=== PATIENT | female | born 1995 | race Caucasian/White ===

== ENCOUNTER 2018-06-12 21:53 | Inpatient (IN) | payer MEDICAID ==
[2018-06-12] MEDS ORDERED: OXYTOCIN 30 UNITS/LR 500 ML IV (23:00)
[2018-06-12] MEDS ORDERED: IBUPROFEN 600 MG TAB PO (23:00)
[2018-06-12] MEDS ORDERED: LIDOCAINE 1% (MPF) 30 ML INJ INJ (23:00)
[2018-06-12] MEDS ORDERED: BUTORPHANOL 2 MG INJ IV (23:00)
[2018-06-12 23:37] LABS: RUPTURE FETAL MEMBRANES POSITIVE (NEGATIVE)
[2018-06-12] MEDS: LACTATED RINGER'S 1,000 ML IV (23:48)
[2018-06-12 23:57] LABS: ADD MAN DIFF? NO
[2018-06-13] LABS: BASOPHIL # 0.1 10^3/ul (0.0-0.1); BASOPHILS % 0.4 % (0.0-2.0); EOSINOPHILS # 0.2 10^3/ul (0.0-0.5); EOSINOPHILS % 1.7 % (0.0-7.0); HEMATOCRIT 34.6 % (37.0-47.0); HEMOGLOBIN 11.4 g/dl (12.0-16.0); LYMPHOCYTES # 1.9 10^3/ul (0.8-2.9); LYMPHOCYTES % 13.7 % (15.0-51.0); MEAN CORPUSCULAR HGB CONC 32.9 g/dl (32.0-37.0); MEAN PLATELET VOLUME 11.1 fl (7.4-10.4); MONOCYTE # 0.9 10^3/ul (0.3-0.9); MONOCYTES % 6.5 % (0.0-11.0); NEUTROPHIL # 10.6 10^3/ul (1.6-7.5); NEUTROPHILS % 76.6 % (39.0-77.0); PLATELET COUNT 213 10^3/UL (140-415); RED BLOOD COUNT 4.22 10^6/ul (4.20-5.40); RED CELL DISTRIBUTION WIDTH 13.6 % (11.5-14.5)
[2018-06-13] LABS: WHITE BLOOD COUNT 13.9 10^3/ul (4.8-10.8)
[2018-06-13 00:05] LABS: ADD UMIC YES; UR ASCORBIC ACID 40 mg/dL (NEGATIVE); UR BACTERIA FEW /HPF (NONE SEEN); UR BILIRUBIN (Dip) NEGATIVE (NEGATIVE); UR BLOOD (Dip) NEGATIVE (NEGATIVE); UR CLARITY CLEAR (CLEAR); UR COLOR YELLOW (YELLOW); UR GLUCOSE (Dip) NEGATIVE (NEGATIVE); UR KETONES (Dip) NEGATIVE (NEGATIVE); UR LEUKOCYTE ESTERASE (Dip) TRACE Leu/ul (NEGATIVE); UR NITRITE (Dip) NEGATIVE (NEGATIVE); UR RBC 1 /HPF (0-5); UR SPECIFIC GRAVITY (Dip) 1.013 (1.003-1.030); UR SQUAMOUS EPITHELIAL CELL FEW /HPF (FEW); UR TOTAL PROTEIN (Dip) NEGATIVE (NEGATIVE); UR UROBILINOGEN (Dip) NEGATIVE (NEGATIVE); UR WBC 6 /HPF (0-5)
[2018-06-13 00:20] LABS: ALANINE AMINOTRANSFERASE 26 IU/L (13-69); ALBUMIN 3.6 g/dl (3.3-4.9); ALBUMIN/GLOBULIN RATIO 1.02; ALKALINE PHOSPHATASE 174 IU/L (42-121); ANION GAP 13 (5-13); ASPARTATE AMINO TRANSFERASE 19 IU/L (15-46); BILIRUBIN,INDIRECT 0.1 mg/dl (0-1.1); BILIRUBIN,TOTAL 0.1 mg/dl (0.2-1.3); BLOOD UREA NITROGEN 11 mg/dl (7-20); CALCIUM 9.1 mg/dl (8.4-10.2); CARBON DIOXIDE 22 mmol/L (21-31); CHLORIDE 101 mmol/L (97-110); CREATININE 0.48 mg/dl (0.44-1.00); Estimated GFR > 60 mL/min (>60); GLUCOSE 92 mg/dl (70-220); POTASSIUM 3.8 mmol/L (3.5-5.1); SODIUM 136 mmol/L (135-144); TOTAL PROTEIN 7.1 g/dl (6.1-8.1)
[2018-06-13 00:26] LABS: INR 0.85; PROTIME 11.7 Sec (11.9-14.9); PT RATIO 0.9
[2018-06-13 00:27] LABS: PARTIAL THROMBOPLASTIN TIME 24.2 Sec (23.0-35.0)
[2018-06-13 00:50] LABS: HEPATITIS B SURFACE ANTIGEN NEGATIVE (NEGATIVE)
[2018-06-13] MEDS ORDERED: FENTAnyl 2MCG/ML-ROPIV 0.2% 100 ML (02:30)
[2018-06-13] MEDS: LACTATED RINGER'S 1,000 ML IV ×2 (02:49→03:14)
[2018-06-13] MEDS ORDERED: ONDANSETRON 4 MG INJ IV (03:00)
[2018-06-13] MEDS ORDERED: DIPHENHYDRAMINE 50 MG INJ IV (03:00)
[2018-06-13] MEDS ORDERED: NALOXONE (0.4 MG/ML) INJ IV (03:00)
[2018-06-13] MEDS: FENTAnyl 2MCG/ML-ROPIV 0.2% 100 ML BAG EPI (07:49)
[2018-06-13] MEDS: OXYTOCIN 30 UNITS/LR 500 ML IV ×3 (10:16→13:07)
[2018-06-13] MEDS: METHYLERGONOVINE 0.2 MG INJ IM (10:19)
[2018-06-13] MEDS: MISOPROSTOL 200 MCG TAB PR (10:22)
[2018-06-13] MEDS: CARBOPROST 250 MCG INJ IM ×2 (10:26→10:47)
[2018-06-13] MEDS: TRANEXAMIC ACID 1GM/100ML(PMX) 100 ML IVPB (10:49)
[2018-06-13] MEDS: ONDANSETRON 4 MG INJ IV (11:24)
[2018-06-13] MEDS: CEFAZOLIN 2 GM/50 ML (PMX) 50 ML IVPB (11:36)
[2018-06-13] MEDS: KETOROLAC 30 MG INJ IV (12:38)
[2018-06-13] MEDS ORDERED: ACETAMINOPHEN 325 MG TAB PO (14:00)
[2018-06-13] MEDS ORDERED: CARBOPROST 250 MCG INJ IM (14:00)
[2018-06-13] MEDS ORDERED: METHYLERGONOVINE 0.2 MG INJ IM (14:00)
[2018-06-13] MEDS ORDERED: OXYTOCIN 30 UNITS/LR 500 ML IV (14:00)
[2018-06-13] MEDS ORDERED: HYDROCODONE/APAP (5/325) TAB PO (14:00)
[2018-06-13] MEDS ORDERED: MISOPROSTOL 200 MCG TAB PR (14:00)
[2018-06-13 14:19] LABS: ABNORMAL IP MESSAGE 1; HEMATOCRIT 28.1 % (37.0-47.0); HEMOGLOBIN 9.3 g/dl (12.0-16.0); MEAN CORPUSCULAR HEMOGLOBIN 26.8 pg (29.0-33.0); MEAN CORPUSCULAR HGB CONC 33.1 g/dl (32.0-37.0); PLATELET COUNT 190 10^3/UL (140-415); RED BLOOD COUNT 3.47 10^6/ul (4.20-5.40); RED CELL DISTRIBUTION WIDTH 13.7 % (11.5-14.5)
[2018-06-13 14:19] LABS: WHITE BLOOD COUNT 24.7 10^3/ul (4.8-10.8)
[2018-06-13 14:35] LABS: POSITIVE DIFF @See below
[2018-06-13 14:36] LABS: ADD MAN DIFF? YES
[2018-06-13] MEDS: LACTATED RINGER'S 1,000 ML IV* (15:52)
[2018-06-13 16:14] LABS: ANISOCYTOSIS 1+ (0-0); BAND NEUTROPHILS #M 3.7 10^3/ul (0.0-0.6); BAND NEUTROPHILS % (M) 15 % (0-4); LYMPHOCYTES #M 0.9 10^3/ul (0.8-2.9); LYMPHOCYTES % (M) 4 % (15-51); MICROCYTOSIS 1+ (0-0); MONOCYTE #M 0.7 10^3/ul (0.3-0.9); MONOCYTES % (M) 3 % (0-11); PLATELET ESTIMATE NORMAL; SEG NEUT #M 20.2 10^3/ul (1.6-7.5); SEGMENTED NEUTROPHILS (M) % 78 % (39-77); SMUDGE%M 1 % (0-0)
[2018-06-13] MEDS: IBUPROFEN 600 MG TAB PO ×2 (18:10→23:39)
[2018-06-13] MEDS: BENZOCAINE 20% 56 ML SPRAY TOP (18:11)
[2018-06-13] MEDS: DIBUCAINE 1% 30 GM OINT TOP (18:11)
[2018-06-13] MEDS: WITCH HAZEL/GLYCERIN PAD PR (18:12)
[2018-06-13] MEDS: FERROUS SULFATE (EC) 325 MG TAB PO (20:49)
[2018-06-13] MEDS: SENNA/DOCUSATE NA (8.6MG/50MG) TAB PO (20:49)
[2018-06-14] MEDS: IBUPROFEN 600 MG TAB PO ×4 (05:32→23:46)
[2018-06-14] MEDS: SENNA/DOCUSATE NA (8.6MG/50MG) TAB PO ×2 (08:05→21:00)
[2018-06-14 08:31] LABS: ADD MAN DIFF? NO
[2018-06-14 08:35] LABS: WHITE BLOOD COUNT 16.6 10^3/ul (4.8-10.8)
[2018-06-14 08:35] LABS: ABNORMAL IP MESSAGE 1; BASOPHIL # 0.1 10^3/ul (0.0-0.1); BASOPHILS % 0.3 % (0.0-2.0); EOSINOPHILS # 0.1 10^3/ul (0.0-0.5); EOSINOPHILS % 0.4 % (0.0-7.0); LYMPHOCYTES # 1.7 10^3/ul (0.8-2.9); MEAN CORPUSCULAR HEMOGLOBIN 27.6 pg (29.0-33.0); MEAN CORPUSCULAR HGB CONC 33.5 g/dl (32.0-37.0); MEAN CORPUSCULAR VOLUME 82.3 fl (82.0-101.0); MEAN PLATELET VOLUME 11.1 fl (7.4-10.4); MONOCYTE # 1.2 10^3/ul (0.3-0.9); MONOCYTES % 6.9 % (0.0-11.0); NEUTROPHIL # 13.5 10^3/ul (1.6-7.5); NEUTROPHILS % 81.5 % (39.0-77.0); PLATELET COUNT 185 10^3/UL (140-415); RED BLOOD COUNT 2.43 10^6/ul (4.20-5.40); RED CELL DISTRIBUTION WIDTH 13.7 % (11.5-14.5)
[2018-06-14 08:40] LABS: HEMOGLOBIN 6.7 g/dl (12.0-16.0); POSITIVE DIFF @See below
[2018-06-14] MEDS: FERROUS SULFATE (EC) 325 MG TAB PO ×3 (08:58→21:30)
[2018-06-14 12:26] LABS: ANISOCYTOSIS 1+ (0-0); BAND NEUTROPHILS #M 2.6 10^3/ul (0.0-0.6); BAND NEUTROPHILS % (M) 16 % (0-4); HYPOCHROMASIA 1+ (0-0); LYMPHOCYTES #M 0.9 10^3/ul (0.8-2.9); LYMPHOCYTES % (M) 6 % (15-51); MICROCYTOSIS 1+ (0-0); MONOCYTE #M 0.6 10^3/ul (0.3-0.9); MONOCYTES % (M) 4 % (0-11); PLATELET ESTIMATE NORMAL; SEG NEUT #M 12.7 10^3/ul (1.6-7.5); SEGMENTED NEUTROPHILS (M) % 74 % (39-77); SMUDGE%M 3 % (0-0)
[2018-06-14] MEDS: PRENATAL VITAMIN PO (15:58)
[2018-06-14] MEDS: FOLIC ACID 1 MG TAB PO (15:58)
[2018-06-15 00:23] LABS: ADD UMIC YES; UR ASCORBIC ACID NEGATIVE (NEGATIVE); UR BACTERIA FEW /HPF (NONE SEEN); UR BILIRUBIN (Dip) NEGATIVE (NEGATIVE); UR BLOOD (Dip) 1+ mg/dL (NEGATIVE); UR CLARITY CLEAR (CLEAR); UR COLOR YELLOW (YELLOW); UR GLUCOSE (Dip) NEGATIVE (NEGATIVE); UR KETONES (Dip) NEGATIVE (NEGATIVE); UR LEUKOCYTE ESTERASE (Dip) TRACE Leu/ul (NEGATIVE); UR MUCUS FEW /HPF (NONE SEEN); UR NITRITE (Dip) NEGATIVE (NEGATIVE); UR RBC 27 /HPF (0-5); UR SPECIFIC GRAVITY (Dip) 1.008 (1.003-1.030); UR TOTAL PROTEIN (Dip) NEGATIVE (NEGATIVE); UR UROBILINOGEN (Dip) NEGATIVE (NEGATIVE); UR WBC 12 /HPF (0-5)
[2018-06-15] MEDS: IBUPROFEN 600 MG TAB PO ×4 (05:29→23:58)
[2018-06-15 08:36] LABS: ADD MAN DIFF? NO
[2018-06-15 08:41] LABS: ABNORMAL IP MESSAGE 1; BASOPHIL # 0.1 10^3/ul (0.0-0.1); BASOPHILS % 0.4 % (0.0-2.0); EOSINOPHILS # 0.2 10^3/ul (0.0-0.5); EOSINOPHILS % 1.6 % (0.0-7.0); HEMATOCRIT 20.6 % (37.0-47.0); LYMPHOCYTES # 1.8 10^3/ul (0.8-2.9); LYMPHOCYTES % 13.7 % (15.0-51.0); MEAN CORPUSCULAR HEMOGLOBIN 27.1 pg (29.0-33.0); MEAN CORPUSCULAR HGB CONC 32.5 g/dl (32.0-37.0); MEAN CORPUSCULAR VOLUME 83.4 fl (82.0-101.0); MONOCYTE # 0.8 10^3/ul (0.3-0.9); MONOCYTES % 5.7 % (0.0-11.0); NEUTROPHIL # 10.4 10^3/ul (1.6-7.5); NEUTROPHILS % 77.7 % (39.0-77.0); PLATELET COUNT 221 10^3/UL (140-415); RED BLOOD COUNT 2.47 10^6/ul (4.20-5.40); RED CELL DISTRIBUTION WIDTH 13.7 % (11.5-14.5)
[2018-06-15 08:41] LABS: WHITE BLOOD COUNT 13.4 10^3/ul (4.8-10.8)
[2018-06-15 08:43] LABS: POSITIVE DIFF @See below
[2018-06-15 08:45] LABS: HEMOGLOBIN 6.7 g/dl (12.0-16.0)
[2018-06-15 10:01] LABS: ANISOCYTOSIS 2+ (0-0); BAND NEUTROPHILS #M 0.2 10^3/ul (0.0-0.6); BAND NEUTROPHILS % (M) 2 % (0-4); EOSINOPHILS % (M) 1 % (0-7); LYMPHOCYTES #M 2.4 10^3/ul (0.8-2.9); LYMPHOCYTES % (M) 18 % (15-51); MICROCYTOSIS 2+ (0-0); MONOCYTE #M 0.2 10^3/ul (0.3-0.9); MONOCYTES % (M) 2 % (0-11); PLATELET ESTIMATE NORMAL; SEG NEUT #M 10.3 10^3/ul (1.6-7.5); SEGMENTED NEUTROPHILS (M) % 77 % (39-77); SMUDGE%M 1 % (0-0)
[2018-06-15] MEDS: SENNA/DOCUSATE NA (8.6MG/50MG) TAB PO ×2 (10:25→21:43)
[2018-06-15] MEDS: FOLIC ACID 1 MG TAB PO (10:25)
[2018-06-15] MEDS: PRENATAL VITAMIN PO (10:25)
[2018-06-15] MEDS: FERROUS SULFATE (EC) 325 MG TAB PO ×3 (10:25→21:43)
[2018-06-15] MEDS: DIPHTH/TET/ACEL PERTUSS (ADULT) 0.5 ML VIAL IM* (11:51)
[2018-06-15 15:50] LABS: IMMEDIATE SPIN CROSSMATCH 1 1
[2018-06-15] MEDS: SOD CHLORIDE 0.9% 1,000 ML IV (17:27)
[2018-06-16] MEDS: IBUPROFEN 600 MG TAB PO ×2 (05:44→11:42)
[2018-06-16 06:36] LABS: ADD MAN DIFF? NO
[2018-06-16 06:45] LABS: WHITE BLOOD COUNT 9.8 10^3/ul (4.8-10.8)
[2018-06-16 06:45] LABS: BASOPHIL # 0.1 10^3/ul (0.0-0.1); BASOPHILS % 0.5 % (0.0-2.0); EOSINOPHILS # 0.4 10^3/ul (0.0-0.5); EOSINOPHILS % 3.9 % (0.0-7.0); HEMATOCRIT 23.8 % (37.0-47.0); LYMPHOCYTES # 1.5 10^3/ul (0.8-2.9); LYMPHOCYTES % 15.2 % (15.0-51.0); MEAN CORPUSCULAR HEMOGLOBIN 27.6 pg (29.0-33.0); MEAN CORPUSCULAR HGB CONC 32.8 g/dl (32.0-37.0); MEAN CORPUSCULAR VOLUME 84.1 fl (82.0-101.0); MEAN PLATELET VOLUME 10.3 fl (7.4-10.4); MONOCYTE # 0.6 10^3/ul (0.3-0.9); MONOCYTES % 6.1 % (0.0-11.0); NEUTROPHIL # 7.2 10^3/ul (1.6-7.5); NEUTROPHILS % 73.4 % (39.0-77.0); NUCLEATED RED BLOOD CELLS% 0.2 /100WBC (0.0-0.0); PLATELET COUNT 231 10^3/UL (140-415); RED BLOOD COUNT 2.83 10^6/ul (4.20-5.40); RED CELL DISTRIBUTION WIDTH 13.4 % (11.5-14.5)
[2018-06-16 07:02] LABS: HEMOGLOBIN 7.8 g/dl (12.0-16.0)
[2018-06-16] MEDS: FOLIC ACID 1 MG TAB PO (10:45)
[2018-06-16] MEDS: SENNA/DOCUSATE NA (8.6MG/50MG) TAB PO (10:45)
[2018-06-16] MEDS: PRENATAL VITAMIN PO (10:45)
[2018-06-16] MEDS: FERROUS SULFATE (EC) 325 MG TAB PO ×2 (10:47→14:01)
[2018-06-16 16:21] LABS: RAPID PLASMA REAGIN NONREACTIVE (NR)
[2018-06-22 20:10] LABS: RAPID PLASMA REAGIN NONREACTIVE (NR)
== END 2018-06-16 16:35 | disposition home or self-care (01) | DRG 806 ==
LOC: OBT 21:53 → L-D 06-13 08:46 → PP1 06-13 16:37 → L-D 21:53 → OBT 22:44 → L-D 22:44
PROVIDERS: Obstetrics & Gynecology
PROC: 10E0XZZ Delivery of Products of Conception, External Approach (ICD-10-PCS; principal; 2018-06-13)
PROC: 3E033VJ Introduction of Other Hormone into Peripheral Vein, Percutaneous Approach (ICD-10-PCS; 2018-06-13)
PROC: 0HQ9XZZ Repair Perineum Skin, External Approach (ICD-10-PCS; 2018-06-13)
PROC: 30233N1 Transfusion of Nonautologous Red Blood Cells into Peripheral Vein, Percutaneous Approach (ICD-10-PCS; 2018-06-15)
DX: O69.81X0 Labor and delivery complicated by cord around neck, without compression, not applicable or unspecified (principal); D62 Acute posthemorrhagic anemia; Z37.0 Single live birth; O70.0 First degree perineal laceration during delivery; O90.81 Anemia of the puerperium; Z3A.38 38 weeks gestation of pregnancy
CPT/HCPCS: 36430; 62319; 76815; 76818; 80053; 81001; 84112; 84560; 85025; 85610; 85730; 86592; 86850; 86900; 86901; 86920; 87086; 87340; 90715

== ENCOUNTER 2018-06-25 19:00 | Emergency (ER) | payer MEDICAID ==
[2018-06-26] MEDS: MAGNESIUM HYDROXIDE 30ML CUP PO (00:16)
== END 2018-06-26 00:21 | disposition home or self-care (01) ==
LOC: FTE 19:00
DX: K59.03 Drug induced constipation (principal)
CPT/HCPCS: 99282; Z7502